=== PATIENT | male | born 2000 | race Caucasian/White ===

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

== ENCOUNTER 2021-09-12 18:47 | Outpatient (REF) | payer MEDICAID, SELFPAY ==
[2021-09-12 20:07] LABS: TSH (W/Ref FT4) 25.62 uIU/mL (0.36-3.74)
[2021-09-12 20:31] LABS: FREE T4 0.58 ng/dL (0.76-1.46)
== END 2021-09-12 18:48 | disposition home or self-care (01) ==
LOC: NCHCN 18:47
PROVIDERS: PCP Family Medicine; Visit Provider Nurse Practitioner Family
DX: R09.89 Other specified symptoms and signs involving the circulatory and respiratory systems (principal)
CPT/HCPCS: 84439; 84443

== ENCOUNTER 2021-12-09 16:21 | Outpatient (REF) | payer MEDICAID, SELFPAY ==
[2021-12-09 19:45] LABS: TSH 0.01 uIU/mL (0.36-3.74)
== END 2021-12-09 16:22 | disposition home or self-care (01) ==
LOC: NCHCN 16:21
PROVIDERS: PCP Family Medicine; Visit Provider Nurse Practitioner Family
DX: R94.6 Abnormal results of thyroid function studies (principal)
CPT/HCPCS: 84443

== ENCOUNTER 2022-02-10 14:33 | Outpatient (REF) | payer MEDICAID, SELFPAY ==
[2022-02-10 20:29] LABS: TSH 0.14 uIU/mL (0.36-3.74)
== END 2022-02-10 14:34 | disposition home or self-care (01) ==
LOC: NCHCN 14:33
PROVIDERS: PCP Family Medicine; Visit Provider Nurse Practitioner Family
DX: E03.9 Hypothyroidism, unspecified (principal)
CPT/HCPCS: 84443

== ENCOUNTER 2022-06-05 18:12 | Outpatient (REF) | payer MEDICAID, SELFPAY ==
[2022-06-05 19:23] LABS: TSH 9.03 uIU/mL (0.36-3.74)
== END 2022-06-05 18:13 | disposition home or self-care (01) ==
LOC: NCHCN 18:12
PROVIDERS: PCP Family Medicine; Visit Provider Nurse Practitioner Family
DX: E03.9 Hypothyroidism, unspecified (principal)
CPT/HCPCS: 84443

== ENCOUNTER 2022-08-07 12:27 | Outpatient (REF) | payer MEDICAID, SELFPAY ==
[2022-08-07 16:20] LABS: TSH (W/Ref FT4) 2.21 uIU/mL (0.36-3.74)
== END 2022-08-07 12:28 | disposition home or self-care (01) ==
LOC: NCHCN 12:27
PROVIDERS: PCP Family Medicine; Visit Provider Nurse Practitioner Family
DX: E03.9 Hypothyroidism, unspecified (principal)
CPT/HCPCS: 84443

== ENCOUNTER 2023-03-12 17:31 | Outpatient (REF) | payer BC, MEDICAID, SELFPAY ==
[2023-03-12 18:00] LABS: ALT 23 U/L (16-63); AST 24 U/L (15-37); Albumin 4.4 g/dL (3.4-5.0); Alkaline Phosphatase 51 U/L (46-116); Anion Gap 6.4 mmol/L (3-11); BUN 12 mg/dL (7-18); Bilirubin, Total 0.5 mg/dL (0.2-1.0); CO2 26.6 mmol/L (21.0-32.0); Calcium 9.4 mg/dL (8.5-10.1); Calculated LDL 105 mg/dL (<100); Chloride 105 mmol/L (98-107); Cholesterol 153 mg/dL (<200); Estimated GFR 108.46 (mL/min/1.73m2); Glucose 110 mg/dL (74-106); HDL Cholesterol 35 mg/dL (40-60); Potassium 4.5 mmol/L (3.5-5.1); Sodium 138 mmol/L (136-145); Total Protein 7.7 g/dL (6.4-8.2); Triglyceride 66 mg/dL (<150)
== END 2023-03-12 17:32 | disposition home or self-care (01) ==
LOC: NCHCN 17:31
PROVIDERS: PCP Family Medicine; Visit Provider Nurse Practitioner Family
DX: F39 Unspecified mood [affective] disorder (principal); Z00.00 Encounter for general adult medical examination without abnormal findings
CPT/HCPCS: 80053; 80061